=== PATIENT | female | born 1980 | race Caucasian/White ===

== ENCOUNTER 2017-09-15 14:27 | Emergency (ER) | payer BC ==
[~2017-09-15] VITALS: Ht 162.6 cm; Wt 68.0 kg
[2017-09-15] MEDS ORDERED: AMLODIPINE BESY10 MG (15:05)
[2017-09-15] MEDS ORDERED: ZOLOFT100 MG (15:05)
[2017-09-15] MEDS ORDERED: MIRTAZAPINE7.5 MG (15:06)
[2017-09-15] MEDS ORDERED: FLOVENT HFA10.6 GM (15:06)
[2017-09-16] MEDS ORDERED: NORFLEX100MG PO (02:13)
[2017-09-16] MEDS ORDERED: KETO10TA2 PO (02:13)
== END 2017-09-16 02:23 | disposition home or self-care (01) ==
LOC: ER 14:27
DX: G43.909 Migraine, unspecified, not intractable, without status migrainosus (principal)